=== PATIENT | female | born 1985 ===

== ENCOUNTER 2018-06-23 21:07 | Emergency (ER) | payer SELFPAY ==
[2018-06-23 21:07] VITALS: BMI 31.8
[2018-06-23 21:12] VITALS: BP 121/78; PULSE 66; RESP 16; TEMP 97.7; O2SAT 99
--- NOTE | 2018-06-23 21:26 | C.PDOC ---
History Of Present Illness 32 year old female presents to the Ed for medical evaluation of back pain and rash. She states that her symptoms started a week ago when she was lifting a heavy bag of water up the stairs. She woke up the next day with lower back pain and took Advil with minimal relief. She later developed a rash on her left rivera and became progressively worse. She describes it as a burning sensation. She admits to prior chicken pox as a child. She denies recent illness, fever, chills, headache, nausea, vomiting, weakness, and numbness. Time Seen by Provider: 06/23/18 21:12 Chief Complaint (Nursing): Lower Extremity Problem/Injury History Per: Patient History/Exam Limitations: no limitations Onset/Duration Of Symptoms: Days, Gradual Current Symptoms Are (Timing): Still Present Severity: Moderate Pain Scale Rating Of: 7 Recent travel outside of the [place]: No Past Medical History Reviewed: Historical Data, Nursing Documentation, Vital Signs Vital Signs: Last Vital Signs Temp 97.7 F 06/23/18 21:09 Pulse 66 06/23/18 21:09 Resp 16 06/23/18 21:09 BP 121/78 06/23/18 21:09 Pulse Ox 99 06/23/18 21:09 Surgical History: (x 2) Family History: States: Unknown Family Hx - Social History Hx Tobacco Use: No Hx Alcohol Use: No Hx Substance Use: No - Immunization History Hx Influenza Vaccination: No Review Of Systems Constitutional: Negative for: Fever, Chills, Weakness Cardiovascular: Negative for: Chest Pain Respiratory: Negative for: Shortness of Breath Gastrointestinal: Negative for: Nausea, Vomiting Genitourinary: Negative for: Incontinence Musculoskeletal: Positive for: Back Pain (sacral). Negative for: Neck Pain Skin: Positive for: Rash. Negative for: Bruising Neurological: Negative for: Headache, Dizziness Physical Exam - Physical Exam Appears: Non-toxic, No Acute Distress Skin: Rash (Maculopapular rash with some vesicles from left side of sacrum down left leg and foot (s1-s3 dermatomes)) Head: Atraumatic, Normacephalic Eye(s): bilateral: Normal Inspection, PERRL Ear(s): Bilateral: Normal Nose: No Discharge Oral Mucosa: Moist Tongue: Normal Appearing Lips: Normal Appearing Throat: No Erythema, No Exudate Neck: Normal ROM, Supple Chest: Symmetrical Cardiovascular: Rhythm Regular Respiratory: Normal Breath Sounds, No Wheezing Gastrointestinal/Abdominal: Soft, No Tenderness Back: No CVA Tenderness, Paraspinal Tenderness (left sacrum; Maculopapular rash noted) Extremity: Normal ROM, Tenderness, No Pedal Edema, No Calf Tenderness, Capillary Refill (less than 2 seconds), No Deformity, No Swelling Extremity: Bilateral: Atraumatic Pulses: Left Dorsalis Pedis: Normal, Right Dorsalis Pedis: Normal Neurological/Psych: Oriented x3, Normal Speech, Normal Motor, Normal Sensation Gait: Steady ED Course And Treatment O2 Sat by Pulse Oximetry: 99 Medical Decision Making Medical Decision Making: Impression: Shingles Plan: Valtrex 1gm and Motrin 600mg PO given now Disposition Counseled Patient/Family Regarding: Diagnosis, Need For Followup, Rx Given - Disposition Referrals: Paul Hendricks MD [Medical Doctor] - Disposition: HOME/ ROUTINE Disposition Time: 21:37 Condition: STABLE Additional Instructions: Continue Valtrex three times a day for 10 days Continue Motrin as needed for pain Follow up with PMD in 1-2 days Return to the ED if symptoms worsen Prescriptions: Ibuprofen [Motrin] 600 mg PO Q8 PRN #30 tab PRN Reason: Pain, Moderate (4-7) Valacyclovir HCl [Valtrex] 1,000 mg PO TID 10 Days #29 tablet Instructions: Shingles (DC) Forms: Informative (Vincentian) Print Language: URDU - Clinical Impression Clinical Impression: Skin rash, Shingles, Left lumbar pain - PA / [employer] / Resident Statement MD/DO has reviewed & agrees with the documentation as recorded.
== END 2018-06-23 21:51 | disposition home or self-care (01) ==
LOC: C.ER 21:07
DX: B02.9 Zoster without complications (principal); M54.5 Low back pain